=== PATIENT | male | born 1995 | race Caucasian/White ===

== ENCOUNTER 2017-06-30 22:56 | Emergency (ER) | payer BC, OTHER ==
[~2017-06-30] VITALS: Ht 177.8 cm; Wt 77.1 kg
[2017-06-30] MEDS ORDERED: ZIPRASIDONE 20 MG INJ (GEODON) VIAL IM ONE (23:03)
[2017-06-30] MEDS ORDERED: WATER (STERILE) FOR INJECTION 20 ML ONE (23:06)
[2017-06-30] MEDS ORDERED: LACTATED RINGERS 1,000 ML IV ONE (23:19)
--- NOTE | 2017-06-30 23:28 | ED Psychosocial ---
General Stated Complaint: AMS Source: patient, family (roommates and lifelong family friends as well as mother) Exam Limitations: clinical condition History of Present Illness Date Seen by Provider: Jun 30, 2017 Time Seen by Provider: 23:00 Initial Comments Patient presents to the ER by private conveyance with his 2 roommates with a chief complaint of for the last 4 days he's been acting off asking bizarre questions to people such as asking them if they're contemplating suicide out of the blue. He is also been not taking care of himself as well and within the last hour it is escalating the point where he threw something for a glass window at their house and cut his left hand on the palmar side. They had to bring him in and then wrestle him down to the ground in the room as he was trying to break through the doors acting bizarrely and not answering questions appropriately. No history of trauma. He does have a history of bipolar disorder and to primary family members but no history of schizophrenia and himself or family members. He does not take any medications and has not taken anything other than he did smoke some marijuana last weekend but several other people smoke the same marijuana did not have any issues related to that. He does not use any other kind of illicit drugs. No recent alcohol or tobacco use. Patient states he is not in pain. Friends state he's been having some morbid ideation asking other people if there can't find suicide but he himself has had no suicidal ideation or homicidal ideation. Allergies and Home Medications Allergies Coded Allergies: No Known Drug Allergies (Unverified , 06/30/17) Home Medications Cephalexin 500 Mg Capsule, 500 MG PO QIDACHS Prescribed by: JARAD JOHNSTON on 07/01/17 0236 Patient Home Medication List Home Medication List Reviewed: Yes Constitutional: see HPI (unable to give a review of systems secondary to patient's behaviors.) Past Uzirafr-Psnwje-Mcpwem Hx Patient Social History Alcohol Use: Denies Use Recreational Drug Use: Yes Drug of Choice: marijuana Physical Exam Vital Signs Vital Signs - First Documented 06/30/17 23:00 Temp 97.0 Pulse 110 Resp 20 B/P (MAP) 152/99 (116) Pulse Ox 97 O2 Delivery Room Air Capillary Refill : General Appearance: thin, other (in his underwear) HEENT: PERRL/EOMI, normal ENT inspection, TMs normal, pharynx normal Neck: non-tender, supple, normal inspection Respiratory: chest non-tender, lungs clear, normal breath sounds, no respiratory distress, no accessory muscle use Cardiovascular: normal peripheral pulses, regular rate, rhythm, no edema Peripheral Pulses: 2+ Radial Pulses (R), 2+ Radial Pulses (L) Gastrointestinal: normal bowel sounds, non tender, soft, no organomegaly Extremities: normal range of motion, non-tender, normal capillary refill, other (the blood on his left hand and both feet scant amount. There is a 2 cm linear laceration on the palmar side of his left hand.) Neurologic/Psychiatric: alert, disoriented x 3 Appearance/Memory: disheveled, impaired insight, impaired recent memory, impaired remote memory Behavior/Eye Contact: good eye contact, refused to answer, belligerent, compulsive, uncooperative Thoughts/Hallucinations: incoherent, paranoid Skin: normal color, warm/dry, other (laceration left palm) Laceration Repair : Wound Location: Upper Extremities Other Wound Location Left Palm Wound Length (cm): 1.5 Wound's Depth, Shape: sub Q Irrigated w/ Saline (ccs): 100 Betadine Prep?: Yes Anesthesia: 1% Lidocaine (6) Volume Anesthetic (ccs): 6 Wound Debrided: minimal Suture: Prolene Suture Size: 4-0 Number of Sutures: 3 Layer Closure?: 1 Sterile Dressing Applied?: Yes Progress Patient's hand was held in traction and the wound was cleaned thoroughly with chlorhexidine soap water and then infiltrated with 6 cc and a ring block fashion around the wound. 15 minutes later the wound was probed and found to be numb. He was cleaned again with chlorhexidine soap water probed using blunt instruments and no foreign debris was found. Wound was then irrigated with 100 cc of sterile saline with chlorhexidine soap and then sterile saline. It was re- probed and then sutured with 3 interrupted simple sutures. Patient tolerated the procedure very well. Progress/Results/Core Measures Results/Orders Lab Results Laboratory Tests Test 06/30/17 23:25 07/01/17 00:30 Range/Units White Blood Count 8.1 4.3-11.0 10^3/uL Red Blood Count 5.05 4.35-5.85 10^6/uL Hemoglobin 15.7 13.3-17.7 G/DL Hematocrit 42 40-54 % Mean Corpuscular Volume 84 80-99 FL Mean Corpuscular Hemoglobin 31 25-34 PG Mean Corpuscular Hemoglobin Concent 37 H 32-36 G/DL Red Cell Distribution Width 12.0 10.0-14.5 % Platelet Count 232 130-400 10^3/uL Mean Platelet Volume 9.8 7.4-10.4 FL Neutrophils (%) (Auto) 78 H 42-75 % Lymphocytes (%) (Auto) 13 12-44 % Monocytes (%) (Auto) 8 0-12 % Eosinophils (%) (Auto) 0 0-10 % Basophils (%) (Auto) 0 0-10 % Neutrophils # (Auto) 6.3 1.8-7.8 X 10^3 Lymphocytes # (Auto) 1.0 1.0-4.0 X 10^3 Monocytes # (Auto) 0.7 0.0-1.0 X 10^3 Eosinophils # (Auto) 0.0 0.0-0.3 10^3/uL Basophils # (Auto) 0.0 0.0-0.1 10^3/uL Sodium Level 142 135-145 MMOL/L Potassium Level 3.7 3.6-5.0 MMOL/L Chloride Level 102 98-107 MMOL/L Carbon Dioxide Level 24 21-32 MMOL/L Anion Gap 16 H 5-14 MMOL/L Blood Urea Nitrogen 12 7-18 MG/DL Creatinine 1.21 0.60-1.30 MG/DL Estimat Glomerular Filtration Rate > 60 BUN/Creatinine Ratio 10 Glucose Level 227 H 70-105 MG/DL Calcium Level 9.7 8.5-10.1 MG/DL Magnesium Level 2.4 1.8-2.4 MG/DL Total Bilirubin 0.9 0.1-1.0 MG/DL Aspartate Amino Transf (AST/SGOT) 17 5-34 U/L Alanine Aminotransferase (ALT/SGPT) 14 0-55 U/L Alkaline Phosphatase 69 40-136 U/L C-Reactive Protein High Sensitivity 0.02 0.00-0.50 MG/DL Total Protein 6.6 6.4-8.2 GM/DL Albumin 4.6 H 3.2-4.5 GM/DL Acetaminophen Level < 10 L 10-30 UG/ML Serum Alcohol < 10 <10 MG/DL Urine Color YELLOW Urine Clarity CLEAR Urine pH 6 5-9 Urine Specific [place] 1.020 1.016-1.022 Urine Protein 2+ H NEGATIVE Urine Glucose (UA) 1+ H NEGATIVE Urine Ketones 1+ H NEGATIVE Urine Nitrite NEGATIVE NEGATIVE Urine Bilirubin NEGATIVE NEGATIVE Urine Urobilinogen 1 NORMAL MG/DL Urine Leukocyte Esterase NEGATIVE NEGATIVE Urine RBC (Auto) NEGATIVE NEGATIVE Urine RBC NONE /HPF Urine WBC NONE /HPF Urine Squamous Epithelial Cells RARE /HPF Urine Crystals NONE /LPF Urine Bacteria NEGATIVE /HPF Urine Casts PRESENT /LPF Urine Hyaline Casts 0-2 H /LPF Urine Mucus MODERATE H /LPF Urine Culture Indicated NO Urine Opiates Screen NEGATIVE NEGATIVE Urine Oxycodone Screen NEGATIVE NEGATIVE Urine Methadone Screen NEGATIVE NEGATIVE Urine Propoxyphene Screen NEGATIVE NEGATIVE Urine Barbiturates Screen NEGATIVE NEGATIVE Ur Tricyclic Antidepressants Screen NEGATIVE NEGATIVE Urine Phencyclidine Screen NEGATIVE NEGATIVE Urine Amphetamines Screen NEGATIVE NEGATIVE Urine Methamphetamines Screen NEGATIVE NEGATIVE Urine Benzodiazepines Screen NEGATIVE NEGATIVE Urine Cocaine Screen NEGATIVE NEGATIVE Urine Cannabinoids Screen POSITIVE H NEGATIVE My Orders Orders - JARAD JOHNSTON Ziprasidone Injection (Geodon Injection) (06/30/17 23:03) Water (Sterile) For Injection (Sterile W (06/30/17 23:06) Acetaminophen (06/30/17 23:19) Alcohol (06/30/17 23:19) Cbc With Automated Diff (06/30/17 23:19) Comprehensive Metabolic Panel (06/30/17 23:19) Hs C Reactive Protein (06/30/17 23:19) Drug Screen Stat (Urine) (06/30/17 23:19) Magnesium (06/30/17 23:19) Ua Culture If Indicated (06/30/17 23:19) Ct Head Wo (06/30/17 23:19) Chest 1 View, Ap/Pa Only (06/30/17 23:19) Saline Lock/Iv-Start (06/30/17 23:19) Lactated Ringers (Lr 1000 Ml Iv Solution (06/30/17 23:19) Hand, Left, 3 Views (06/30/17 23:22) Lactated Ringers (Lr 1000 Ml Iv Solution (07/01/17 01:55) Dipht,Pertuss(Acell),Tet Adult (Boostrix (07/01/17 02:45) Ceftriaxone Injection (Rocephin Injectio (07/01/17 02:45) Medications Given in ED Current Medications Medications Dose Ordered Sig/Latosha Route Start Time Stop Time Status Last Admin Dose Admin Ceftriaxone Sodium 1000 mg/ Sodium Chloride 100 ml @ 200 mls/hr ONCE ONCE IV 07/01/17 02:45 07/01/17 03:14 DC 07/01/17 02:45 200 MLS/HR Lactated Ringer's 1,000 ml @ 0 mls/hr Q0M ONCE IV 06/30/17 23:19 06/30/17 23:22 DC 06/30/17 23:30 0 MLS/HR Lactated Ringer's 1,000 ml @ ud STK-MED ONCE IV 07/01/17 01:55 07/01/17 01:59 DC 07/01/17 02:30 0 MLS/HR Sterile Water 20 ml @ ud STK-MED ONCE .ROUTE 06/30/17 23:06 06/30/17 23:09 DC 06/30/17 23:10 0 MLS/HR Ziprasidone 20 mg STK-MED ONCE IM 06/30/17 23:03 06/30/17 23:07 DC 06/30/17 23:10 20 MG Vital Signs/I&O Vital Sign - Last 12Hours 06/30/17 23:00 Temp 97.0 Pulse 110 Resp 20 B/P (MAP) 152/99 (116) Pulse Ox 97 O2 Delivery Room Air Progress Note #1: Time: 23:27 Progress Note 20 mg Geodon given and the patient is calming down. We will establish an IV get some fluids in him as well as get some lab out of him. He urinated all over himself and waiting room so we'll have to wait to get some urine. CT of the head and chest x-ray as well as x-ray of the left hand looking for foreign bodies and will clean, irrigate and explore and if possible we'll stitch up his left hand. Tetanus given and rocephin. Progress Note #2: Time: 04:35 Progress Note 0200: [facility] hern[facility]dez [place] [facility] beds[facility] because the patient is not able to give consent as he is not oriented to place or time they require a screener from the [facility] to see the patient first. [facility] called by Nursing. They will come screen him. 0430 The patient is resting comfortably. [facility] mental health came out and assess the patient talked to his family and roommates. We for this information to storm in [place] and they have declined him based on him being too violent for them to handle and him not being able to voluntarily come in. We discussed the case with the family and he is resting peaceably and they're in agreement with taking him home and getting him set up with the local primary care physician in [place]. His aunt is a psychologist will also help him get plugged into the system. Finally we will send him with a Zyprexa oral dissolving tablet if needed. We have discussed the alternative of holding on to him here in the ER or even observing him in the hospital and try again tomorrow but since they are from [place] they would prefer to take him back home and have him seen by local facility and psychiatry. Diagnostic Imaging Diagonstic Imaging: Xray Plain Films/CT/US/NM/MRI: chest (1v) Comments Unremarkable chest x-ray on one view. acute cardiopulmonary processes noted. Reviewed: Reviewed by Me Diagonstic Imaging: Xray Plain Films/CT/US/NM/MRI: other (left hand) Comments No radiopaque foreign body seen. No acute osseous abnormality. Sesamoid bone seen. Reviewed: Reviewed by Me Diagonstic Imaging: CT Plain Films/CT/US/NM/MRI: head Comments No acute intracranial processes noted. Reviewed: Reviewed by Me Departure Impression Impression: Primary Impression: Psychosis Qualified Codes: F23 - Brief psychotic disorder Disposition: 65 XFER TO PSYCH HOSP/UNIT Condition: Improved Departure-Patient Inst. Decision time for Depature: 04:37 Patient Instructions: Acute Psychosis (DC) Add. Discharge Instructions: Allow him to rest in a quiet safe environment. If he starts to have bizarre features you can give him Zyprexa tablet and take him to the nearest ER. Otherwise plan to call the primary care physician and get set up for referral to psychiatry. The other option is that if he is willing and able to state that he is willing to go to inpatient hospitalization you can try getting the primary care physician to have him admitted. If he starts to have any suicidal or homicidal ideation he should be immediately taken to an emergency room if he cannot get in with a primary care physician that day. Scripts Olanzapine (Zyprexa) 5 Mg Tablet 5 MG PO DAILY Y for AGITATION, #14 TAB 0 Refills Prov: JARAD JOHNSTON 07/01/17 Cephalexin (Keflex) 500 Mg Capsule 500 MG PO QIDACHS for 3 Days, #15 CAP 0 Refills Prov: JARAD JOHNSTON 07/01/17 Work/School Note: Work Release Form Date Seen in the Emergency Department: Jul 01, 2017 Return to Work: Jul 08, 2017 Restrictions: No Restrictions JARAD JOHNSTON Jun 30, 2017 23:28
[2017-06-30 23:33] LABS: BASOPHILS % (AUTO) 0 % (0-10); EOSINOPHILS % (AUTO) 0 % (0-10); HEMATOCRIT 42 % (40-54); HEMOGLOBIN 15.7 G/DL (13.3-17.7); LYMPHOCYTES % (AUTO) 13 % (12-44); MEAN CORPUSCULAR HEMOGLOBIN 31 PG (25-34); MEAN CORPUSCULAR HGB CONC 37 G/DL (32-36); MEAN CORPUSCULAR VOLUME 84 FL (80-99); MEAN PLATELET VOLUME 9.8 FL (7.4-10.4); MONOCYTES # (AUTO) 0.7 X 10^3 (0.0-1.0); MONOCYTES % (AUTO) 8 % (0-12); NEUTROPHILS # (AUTO) 6.3 X 10^3 (1.8-7.8); NEUTROPHILS % (AUTO) 78 % (42-75); PLATELET COUNT 232 10^3/uL (130-400); RED BLOOD COUNT 5.05 10^6/uL (4.35-5.85); WHITE BLOOD COUNT 8.1 10^3/uL (4.3-11.0)
[2017-06-30 23:59] LABS: ALANINE AMINOTRANSFERASE 14 U/L (0-55); ALBUMIN 4.6 GM/DL (3.2-4.5); ALKALINE PHOSPHATASE 69 U/L (40-136); BILIRUBIN,TOTAL 0.9 MG/DL (0.1-1.0); BUN/CREATININE RATIO 10; CALCIUM 9.7 MG/DL (8.5-10.1); CARBON DIOXIDE 24 MMOL/L (21-32); CHLORIDE 102 MMOL/L (98-107); CREATININE SERUM 1.21 MG/DL (0.60-1.30); GFR ESTIMATED > 60; GLUCOSE 227 MG/DL (70-105); MAGNESIUM 2.4 MG/DL (1.8-2.4); POTASSIUM 3.7 MMOL/L (3.6-5.0); SODIUM 142 MMOL/L (135-145); TOTAL PROTEIN 6.6 GM/DL (6.4-8.2)
[2017-07-01 00:01] LABS: ACETAMINOPHEN < 10 UG/ML (10-30)
[2017-07-01 00:42] LABS: BILIRUBIN,URINE NEGATIVE (NEGATIVE); CLARITY,URINE CLEAR; COLOR,URINE YELLOW; GLUCOSE, URINE (UA) 1+ (NEGATIVE); KETONES,URINE 1+ (NEGATIVE); LEUKOCYTE ESTERASE ,URINE NEGATIVE (NEGATIVE); NITRITE,URINE NEGATIVE (NEGATIVE); PH,URINE 6 (5-9); PROTEIN,URINE 2+ (NEGATIVE); UROBILINOGEN,URINE 1 MG/DL (NORMAL)
[2017-07-01 00:47] LABS: BACTERIA,URINE NEGATIVE /HPF; HYALINE CASTS, URINE 0-2 /LPF; SQUAMOUS EPITHELIAL CELL,UR RARE /HPF
[2017-07-01 00:51] LABS: AMPHETAMINE SCREEN, URINE NEGATIVE (NEGATIVE); BARBITURATE SCREEN URINE NEGATIVE (NEGATIVE); BENZODIAZEPINES SCREEN URINE NEGATIVE (NEGATIVE); CANNABINOID SCREEN, URINE POSITIVE (NEGATIVE); COCAINE SCREEN URINE NEGATIVE (NEGATIVE); METHADONE STAT NEGATIVE (NEGATIVE); METHAMPHETAMINE SCREEN URINE S NEGATIVE (NEGATIVE); OPIATE SCREEN URINE NEGATIVE (NEGATIVE); OXYCODONE STAT NEGATIVE (NEGATIVE); PROPOXYPHENE STAT NEGATIVE (NEGATIVE); TRICYCLIC ANTIDEPRESSANTS SCRE NEGATIVE (NEGATIVE)
[2017-07-01] MEDS ORDERED: LACTATED RINGERS 1,000 ML IV ONE (01:55)
[2017-07-01] MEDS ORDERED: CEPH-507 PO (02:36)
[2017-07-01] MEDS ORDERED: cefTRIAXone INJECTION 1,000 MG in NS (IVPB) 100 ML IV ONE (02:45)
[2017-07-01] MEDS ORDERED: TETANUS,DIPTH,PERTUSS P/F (BOOSTRIX) 0.5 ML VIAL IM ONE (02:45)
[2017-07-01] MEDS ORDERED: OLAN5TAB3 PO (04:40)
[2017-07-01] MEDS ORDERED: OLANZapine 5 MG ODT (ZyPREXA ZYDIS) PO ONE (04:45)
[2017-07-01 05:15] VITALS: BP 104/68
--- NOTE | 2017-07-01 06:02 | Diagnostic Imaging Report ---
CHEST 1 VIEW, AP/PA ONLY Indication: Altered metal status. Comparison: None available. Findings: No focal airspace disease in the visualized lungs. Please note that the posterior lower lobes are poorly evaluated by portable radiography. No pleural effusion or pneumothorax. Normal cardiomediastinal silhouette. Impression: No acute cardiopulmonary process by portable radiography. Dictated by: Dictated on workstation # [id number]
--- NOTE | 2017-07-01 06:17 | Diagnostic Imaging Report ---
PROCEDURE: CT head without contrast. TECHNIQUE: Multiple contiguous axial images were obtained through the brain without the use of intravenous contrast. INDICATION: Altered mental status, combative. Comparison: None available. Findings: No hyperdense hemorrhage or space-occupying mass. No hydrocephalus or midline shift. The basilar cisterns are normal. Gagnon-white matter differentiation is well preserved. The mastoid air cells are clear. Paranasal sinuses are normal. No focal osseous abnormality of the calvarium. Impression: No acute intracranial process. Findings are in agreement with the preliminary report. Dictated by: Dictated on workstation # [id number]
--- NOTE | 2017-07-01 07:02 | Diagnostic Imaging Report ---
INDICATION: Left hand injury with pain. AP, oblique and lateral views of left hand are obtained. There is a small ossific fragment adjacent to the ulnar styloid process which may represent avulsion fracture of indeterminate age. No other fracture or malalignment is identified. IMPRESSION: Small avulsion fracture arising from ulnar styloid process without other acute abnormality detected. Dictated by: Dictated on workstation # [id number]
== END 2017-07-01 05:15 | disposition home or self-care (01) ==
LOC: ER 22:59
DX: F23 Brief psychotic disorder (principal); S61.412A Laceration without foreign body of left hand, initial encounter; F31.9 Bipolar disorder, unspecified; F12.10 Cannabis abuse, uncomplicated; Z23 Encounter for immunization; W25.XXXA Contact with sharp glass, initial encounter
CPT/HCPCS: 12001; 36415; 51701; 70450; 71045; 73130; 80053; 80306; 80320; 80329; 81000; 83735; 85025; 86141; 90715; 96361; 96365; 96372